=== PATIENT | male | born 1980 | race Caucasian/White ===

== ENCOUNTER 2016-05-17 03:48 | Emergency (ER) | payer OTHER ==
[~2016-05-17] VITALS: Ht 182.9 cm; Wt 100.0 kg
[~2016-05-17 03:48] MED LIST: AMOX-366 PO; AMOX500C2 PO; HYDR-3090 PO; IBUP-1827 PO; OMEP20TA86 PO; PENI500T PO; TRAM50TA2 PO
[2016-05-17 03:54] VITALS: BP 136/87; PULSE 61; RESP 18; O2SAT 99
--- NOTE | 2016-05-17 04:03 | ED.REPORT ---
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 Associated symptom of left flank pain onset around 02:30. Pain came on gradually, and is described as dull in character. Patient denies productive cough. Nursing Notes Stated Complaint: BLOOD IN URINE Chief Complaint: Male Abdominal Pain Nursing Notes Reviewed: Yes Allergies: Coded Allergies: amoxicillin (Verified Allergy, Intermediate, FEVER, 02/15/15) Scheduled Amoxicillin (Amoxil) 500 Mg Capsule 500 MG PO TID Amoxicillin/Clav K 875-125 mg (Augmentin 875-125 mg) 1 Each Tablet 1 TABLET PO BID Omeprazole (Omeprazole) 20 Mg Tablet.dr 20 MG PO BID Omeprazole (Omeprazole) 20 Mg Tablet.dr 20 MG PO BID Penicillin V Potassium (Penicillin V Potassium) 500 Mg Tablet 500 MG PO QID Scheduled PRN Hydrocodone-Acetaminophen 5-300 mg (Hydrocodone-Acetaminophen 5-300 mg) 1 Each Tablet 1-2 TABLET PO Q4H PRN PRN For Pain Ibuprofen (Ibuprofen) 600 Mg Tablet 600 MG PO QID PRN PRN For Pain Ondansetron ODT (Ondansetron ODT) 8 Mg Tab.rapdis 8 MG PO QID PRN PRN For Nausea Tramadol (Tramadol) 50 Mg Tablet 100 MG PO Q6H PRN PRN For Pain Tramadol (Tramadol) 50 Mg Tablet 100 MG PO Q6H PRN PRN For Pain General Time Seen by MD: 04:03 Chief Complaint Other (Hematuria) Hx Obtained From: Patient Arrived By: Walk-in Sudden in Onset?: No Onset Occurred: 1 - 4 hours ago Symptom Duration: Since onset Location: : Flank left Quality: Painful Severity: Current: Moderate Severity: Maximum: Moderate Pertinent Negative: Pt denies other symptoms Similar Sx Previous: Yes Past Medical History Past Medical History Dental infection Kidney stones Past Surgical History Septal deviation repair, knee Smoking History Current Every Day Smoker Social History Alcohol Use: Denies alcohol use Drug Use: THC Other Social History: Good social support, From out of town Occupation Works at [employer], lives with girlfriend Ambulatory Status Independent Review of Systems Constitutional: Denies: Chills, Fever Respiratory: Denies: Non-productive cough, Prod cough, bloody, Prod cough, brown, Prod cough, clear, Prod cough, green, Prod cough, white, Prod cough, yellow GI: Denies: Constipation, Diarrhea, Nausea, Vomiting Male: Reports Flank pain, Reports Hematuria Complete sys rev & neg: except as marked. Physical Exam Initial Vital Signs Vital Signs (First) Date Time Temp Pulse Resp B/P Pulse Ox O2 Delivery O2 Flow Rate FiO2 05/17/16 03:54 36.3 61 18 136/87 99 Room Air Initial VS: Reviewed Head / Eyes: Atraumatic, Normocephalic Neck: Supple, Non-tender, Full range of motion Extremities: Vascular intact, Neuro intact, No swelling, No tenderness Neurologic: Alert, Oriented, Nonfocal General/Constitutional: Awake, Alert, Well developed, Well nourished Respiratory / Chest: Breath sounds NL, Breath sounds = bilat, No respiratory distress, No rales, No rhonchi, No wheezing, No stridor Cardiovascular: Heart rate NL, Regular rhythm, Heart sounds NL, Peripheral circulation NL Abdomen: Soft, Non-tender, No guarding, No rebound, No distention No percussive flank tenderness. Back: Inspection NL, Non-tender, No CVA tenderness Skin: Warm, Intact Color / Condition: Positive: Diaphoresis present Interpretation & Diagnostics Lab Results Interpretation Result Diagram: 05/17/16 0415 05/17/16 0415 Test 05/17/16 04:15 05/17/16 05:10 White Blood Count 6.5th/mm3 (3.8-10.1) Red Blood Count 5.15mil/mm3 (4.40-5.80) Hemoglobin 15.0g/dL (13.8-17.2) Hematocrit 43.5% (41.0-50.0) Mean Corpuscular Volume 84.5fL (81-100) Mean Corpuscular Hemoglobin 29.1pg (27.0-35.0) Mean Corpuscular Hemoglobin Concent 34.5% (32.0-37.0) Red Cell Distribution Width 13.9% (12.3-15.4) Platelet Count 205bil/L (150-400) Neutrophils (%) (Auto) 53.3% (40-74) Lymphocytes (%) (Auto) 35.9% (14-46) Monocytes (%) (Auto) 8.0% (4-12) Eosinophils (%) (Auto) 2.3% (0-5) Basophils (%) (Auto) 0.3% (0-3) Sodium Level 136mEq/L (134-144) Potassium Level 3.7mEq/L (3.5-5.2) Chloride Level 101mEq/L (97-108) Carbon Dioxide Level 19mmol/L (18-29) Blood Urea Nitrogen 17mg/dL (6-20) Creatinine 0.86mg/dL (0.76-1.27) Estimat Glomerular Filtration Rate 108mL/min (>59) Glucose Level 99mg/dL (60-99) Calcium Level 9.7mg/dL (8.5-10.1) Total Bilirubin 0.4mg/dL (0.0-1.2) Aspartate Amino Transf (AST/SGOT) 27U/L (0-50) Alanine Aminotransferase (ALT/SGPT) 28U/L (0-44) Alkaline Phosphatase 63U/L (25-150) Total Protein 7.7g/dL (6.4-8.4) Albumin 4.6g/dL (3.4-5.0) Lipase 148U/L (13-60) Urine Color Yellow (YELLOW) Urine Appearance Clear (CLEAR,HAZY) Urine pH 7.0 (5.0-8.0) Urine Specific Dexter 1.010 (1.003-1.035) Urine Protein Negativemg/dL (NEG,TRACE) Urine Glucose (UA) Negativemg/dL (NEGATIVE) Urine Ketones Negativemg/dL (NEGATIVE) Urine Occult Blood Moderate (NEGATIVE) Urine Nitrite Negative (NEGATIVE) Urine Bilirubin Negative (NEGATIVE) Urine Urobilinogen 1.0mg/dL (NORMAL) Urine Leukocyte Esterase Negative (NEGATIVE) Urine RBC 11-50/hpf (0-2) Urine WBC 0-5/hpf (0-5) Urine Epithelial Cells Few/hpf (NONE-MOD) Urine Crystals None seen (NONE SEEN) Urine Bacteria Few/hpf (NONE-FEW) Urine Hyaline Casts None/lpf (NONE) Urine Granular Casts None seen (NONE SEEN) Urine Waxy Casts None seen (NONE SEEN) Urine Red Blood Cell Casts None seen (NONE SEEN) Urine White Blood Cell Casts None seen (NONE SEEN) Urine Mucus None seen (None Seen) Urine Trichomonas None seen (NONE SEEN) Urine Yeast None (NONE SEEN) Urinalysis Comment None Urine Culture Reflexed Not indicated Urine Opiates Screen Negative Urine Methadone Screen Negative Urine Barbiturates Screen Negative Urine Amphetamines Screen Negative Urine Benzodiazepines Screen Negative Urine Cocaine Metabolite Screen Negative Urine Cannabinoids Screen Positive CT Abd / Pelvis Interpretation KIDNEYS: No stones or hydronephrosis. CONCLUSION: No acute findings. Electronically signed by Reynold Ho MD Study type: Abdominal CT IV contrast Interpretation / Wet Read by: Interpret - Radiologist Re-Eval/Medical Decision Med Decision/Clinical Course 36-year-old presents with hematuria and pain in his left flank and back. CT is negative for evidence of stone or hydronephrosis. It is also negative for any other significant findings. He does have a moderately elevated lipase unexpectedly. No evidence of obstruction there. Source of his pain appears to be low-grade pancreatitis and not hydronephrosis. Source of his hematuria is unclear. He is discharged with Zofran for nausea relief, tramadol for pain relief, clear liquid low-fat diet and progress slowly as tolerated. Return promptly if worse, or if nausea is uncontrolled. Follow-up with local physician. Referred to Dr. Suarez from referral list. Source of Hx: Old records Re-Evaluation/Progress : Time of Eval: 06:03 Re-Evaluation/Progress Note: Discussed lab and imaging results and plan to discharge. Patient is amenable to the plan. Return precautions given. All other questions addressed. Counseled Regarding: Diagnosis, Lab results, Need for follow-up, When/why to return to ED Patient Discharge & Departure Primary Impression: Pancreatitis Additional Impressions: Hematuria Dental caries Disposition: Home Discharge Condition All VS Reviewed: Yes Condition: Stable Patient Instructions: Pancreatitis (ED) Additional Instructions: Take Omeprazole as directed for the next four weeks. Zofran up to four times daily if needed for nausea. Tramadol if needed for pain, two tablets up to four times daily. Never exceed eight tramadol tablets in a day. Clear liquid diet for the next few days and advance slowly as tolerated. Avoid fatty foods. Return to the ER for uncontrollable pain, uncontrolled vomiting, or if you develop any new or worsening symptoms. Referrals: NOPCP (PCP) [facility] Sherrill Suarez MD Scribe Attestation Portions of this note were transcribed by Guillermo Shreyas. I, Dr. Rouse, personally performed the history, physical exam and medical decision-making; I reviewed and confirmed the accuracy of the information in the transcribed note. Signed by: Kameron Baxter. 05/17/2016 - 06:16 copies to: [facility]; Sherrill Suarez MD,Vasly Oliveira MD May 17, 2016 04:03 GUILLERMO DE LA GARZA May 17, 2016 04:17
[2016-05-17] MEDS ORDERED: 0.9% Sodium Chloride 1,000 ML IV ONE ×2 (04:13→05:15)
[2016-05-17] MEDS ORDERED: Ondansetron 2 mg/mL 2 mL Inj IVPUSH ONE (04:15)
[2016-05-17 04:23] LABS: BASOPHILS % (AUTO) 0.3 % (0-3); EOSINOPHILS % (AUTO) 2.3 % (0-5); Mean Corpuscular Hemoglobin 29.1 pg (27.0-35.0); Mean Corpuscular Volume 84.5 fL (81-100); NEUTROPHILS % (AUTO) 53.3 % (40-74); Platelet Count 205 bil/L (150-400)
[2016-05-17 05:24] LABS: APPEARANCE,URINE CLEAR (CLEAR,HAZY); COLOR,URINE YELLOW (YELLOW); OCCULT BLOOD,URINE MODERATE (NEGATIVE)
[2016-05-17] MEDS ORDERED: OMEP20TA86 PO (06:12)
[2016-05-17] MEDS ORDERED: TRAM50TA2 PO (06:12)
[2016-05-17] MEDS ORDERED: ONDA8TAB10 PO (06:13)
--- NOTE | 2016-05-17 09:19 | DRSVH ---
PROCEDURE: CT ABDOMEN AND PELVIS WITH CONTRAST ([id number]) INDICATIONS: Left flank pain and hematuria. TECHNIQUE: After the administration of intravenous contrast, 5 mm thick sections acquired from the diaphragm to the symphysis. 5 mm coronal and sagittal reformats were acquired. For radiation dose reduction, the following was used: automated exposure control, adjustment of mA and/or kV according to patient melanie granados. COMPARISON: [facility], CT, CT KUB, 02/15/2015, 19:11. FINDINGS: Image quality: Excellent. ABDOMEN: Lung bases: Lung bases are clear. Heart size is normal. Solid organs: Liver and spleen are normal in size and enhancement. Gallbladder is normal. Biliary system is non dilated. Pancreas enhances normally. No adrenal nodules. Kidneys demonstrate normal size and enhancement, without hydronephrosis. Peritoneum and bowel: There are scattered colonic diverticula. No evidence for active diverticulitis . Bowel loops demonstrate normal wall thickness and caliber. No free fluid or air. Nodes and vessels: No retroperitoneal or mesenteric adenopathy by size criteria. Aorta and inferior vena cava are normal in size. Miscellaneous: No ventral hernias. PELVIS: Genitourinary: Bladder wall thickness is normal. Miscellaneous: No inguinal hernias or adenopathy. Bones: No suspicious bony lesions. No vertebral body compression fractures. IMPRESSION: 1. No CT findings to explain left flank pain and hematuria. 2. Diverticulosis. No evidence for active diverticulitis. No significant discrepancy with the stroboscope operator radiology preliminary report. Dictated by: Seb Quinones M.D. on 05/17/2016 at 9:15 Approved by: Seb Quinones M.D. on 05/17/2016 at 9:18
== END 2016-05-17 06:23 | disposition home or self-care (01) ==
LOC: SED 03:48
DX: K85.90 Acute pancreatitis without necrosis or infection, unspecified (principal); R31.9 Hematuria, unspecified; K02.9 Dental caries, unspecified; F17.200 Nicotine dependence, unspecified, uncomplicated; Z88.1 Allergy status to other antibiotic agents
CPT/HCPCS: 36415; 74177; 80053; 81000; 83690; 85025; 96361; 96374; 96375; 99285; G0480; J1885; J2405; J7030; Q9967

== ENCOUNTER 2016-05-19 06:46 | Emergency (ER) | payer OTHER ==
[~2016-05-19] VITALS: Ht 182.9 cm; Wt 107.6 kg
[~2016-05-19 06:46] MED LIST changes: +ONDA8TAB10 PO
[2016-05-19 06:48] VITALS: BP 151/97; PULSE 72; RESP 14; O2SAT 98
--- NOTE | 2016-05-19 06:56 | ED.REPORT ---
HPI-Dental/Mouth Prob Date of Service May 19, 2016 ED Provider: Antonina Collins MD Pt is a 36 y.o. male who presents to the ED c/o worsening right-sided tooth pains. Pt states that he has had dentail pains for a "long time" but the pain is now radiating from his mouth to his right ear and worship. He reports successfully using Tramadol, Tylenol, ibuprofen, Anbesol, Orajel, and dental wax in the past but is not currently receiving any relief from these treatments. He states that he is not seeking any prescriptions for pain medication, as he was recently prescribed Tramadol (05/17/16 ED visit for pancreatitis), but he is seeking a dental block in order to sleep before he works today. Pt claims that he is attempting to schedule a dental appointment through [facility]. Nursing Notes Stated Complaint: TOOTH PAIN Chief Complaint: Dental Nursing Notes Reviewed: Yes Allergies: Coded Allergies: amoxicillin (Verified Allergy, Intermediate, FEVER, 02/15/15) Scheduled Amoxicillin (Amoxil) 500 Mg Capsule 500 MG PO TID Amoxicillin/Clav K 875-125 mg (Augmentin 875-125 mg) 1 Each Tablet 1 TABLET PO BID Clindamycin (Clindamycin) 150 Mg Capsule 150 MG PO QID Omeprazole (Omeprazole) 20 Mg Tablet.dr 20 MG PO BID Omeprazole (Omeprazole) 20 Mg Tablet.dr 20 MG PO BID Penicillin V Potassium (Penicillin V Potassium) 500 Mg Tablet 500 MG PO QID Scheduled PRN Hydrocodone-Acetaminophen 5-300 mg (Hydrocodone-Acetaminophen 5-300 mg) 1 Each Tablet 1-2 TABLET PO Q4H PRN PRN For Pain Ibuprofen (Ibuprofen) 600 Mg Tablet 600 MG PO QID PRN PRN For Pain Ondansetron ODT (Ondansetron ODT) 8 Mg Tab.rapdis 8 MG PO QID PRN PRN For Nausea Tramadol (Tramadol) 50 Mg Tablet 100 MG PO Q6H PRN PRN For Pain Tramadol (Tramadol) 50 Mg Tablet 100 MG PO Q6H PRN PRN For Pain General Time Seen by MD: 06:54 Chief Complaint Tooth pain Hx Obtained From: Patient Arrived By: Walk-in Onset Occurred: More than a week ago... Symptom Duration: Waxes and wanes Location: : Tooth lower R molar: Tooth upper R molar Quality: Painful Severity: Current: Severe Recent Healthcare: Recent doctor visit Similar Sx Previous: Yes Past Medical History Past Medical History Dental infection Kidney stones Past Surgical History Septal deviation repair, knee Smoking History Current Every Day Smoker Social History Alcohol Use: Denies alcohol use Drug Use: THC Other Social History: Good social support, From out of town Occupation Works at [employer], lives with girlfriend Ambulatory Status Independent Review of Systems Ears / Nose / Throat: Reports: Earache right, Mouth pain, Toothache Complete sys rev & neg: except as marked. Neurologic: Reports: Headache (right worship) Physical Exam Initial Vital Signs Vital Signs (First) Date Time Temp Pulse Resp B/P Pulse Ox O2 Delivery O2 Flow Rate FiO2 05/19/16 06:48 36.2 72 14 151/97 98 Room Air Initial VS: Reviewed Head / Eyes: Atraumatic, Normocephalic Respiratory: Breath sounds normal, No respiratory distress Cardiovascular: Regular rate & rhythm, Intact distal pulses Abdomen / GI: No distention Extremities: Vascular intact, Neuro intact Skin: Warm, Dry, No cyanosis Neurologic: Alert, Oriented, Nonfocal Psychiatric: Mood/affect normal, Behavior normal, Normal thought content Dental / Gums: Positive: Decay extensive (1,2,31,32), Dentition poor, Tooth fracture (1,2,31,32) Trauma - ENT Specific: Positive: Dentition fracture... Neck: Atraumatic, Supple General/Constitutional: Awake, Alert, No acute distress, Well appearing, Well developed, Well hydrated, Well nourished, Not toxic appearing Procedures Dental Nerve Block Dental Nerve Block Note: Pain management for fractured dentition Time: 07:10 Block Performed by: ED physician Consent / Setup / Site Prep: Informed consent provided, Consent from patient , Time-out performed, Hand hygiene observed Local Anesthesia: Bupivacaine 0.5% (with epi) Post-Procedure / Complications: No complications, Tolerated procedure well, Patient stable, No bleeding Re-Eval/Medical Decision Source of Hx: Old records Re-Evaluation/Progress : Time of Eval: 07:10 Re-Evaluation/Progress Note: Discussed with pt plan for dental block and discharge, pt understands and agrees with plan. Counseled Regarding: Diagnosis, Lab results, Need for follow-up Discharge & Departure Primary Impression: Dental infection Additional Impression: Broken tooth Disposition: Home Discharge Condition All VS Reviewed: Yes Condition: Improved Patient Instructions: Dental Caries (ED), Acute dental trauma (ED) Additional Instructions: Thank you for entrusting us with your care today. I will prescribe you a course of Clindamycin to prevent further infection, [facility] Schedule an appointment through [facility] for further dental evaluation. Return if you develop a fever, increased pain, difficulty breathing or swallowing or any new or worsening symptoms. I wish you the best of luck with your health and fatherhood! Referrals: NOPCP (PCP) [facility] Kameron Attestation Portions of this note were transcribed by Bisi Jara. I, Dr. Collins personally performed the history, physical exam and medical decision-making; I reviewed and confirmed the accuracy of the information in the transcribed note. Signed by: Kameron Melo, 05/19/16 and 0725. copies to: [facility] Antonina Collins MD May 19, 2016 06:56 BISI JARA May 19, 2016 07:09
[2016-05-19] MEDS ORDERED: Bupivacaine 0.5%/EPI 50 mL Inj ONE (07:07)
[2016-05-19] MEDS ORDERED: CLIN-77 PO (07:15)
[2016-05-19 07:28] VITALS: BP 128/84; PULSE 69; RESP 16; O2SAT 98
== END 2016-05-19 07:29 | disposition home or self-care (01) ==
LOC: SED 06:46
DX: K04.7 Periapical abscess without sinus (principal); S02.5XXA Fracture of tooth (traumatic), initial encounter for closed fracture; Z88.1 Allergy status to other antibiotic agents; X58.XXXA Exposure to other specified factors, initial encounter; Y93.9 Activity, unspecified; Y92.9 Unspecified place or not applicable; Y99.9 Unspecified external cause status